=== PATIENT | male | born 1980 | race Caucasian/White ===

== ENCOUNTER 2023-01-17 05:37 | Day surgery (SDC) | payer BC, OTHER ==
[~2023-01-17] VITALS: Ht 177.8 cm; Wt 105.7 kg
[2023-01-17] MEDS ORDERED: PROTONIX20 MG PO (06:04)
[2023-01-17 06:18] VITALS: BP 117/60; PULSE 55; TEMP 97.2
[2023-01-17] MEDS ORDERED: NAPROSYN500 MG PO (07:48)
[2023-01-17] MEDS ORDERED: NORCO 325 MG-51 TAB PO (07:48)
[2023-01-17] MEDS ORDERED: CEPHALEXIN500 M1 PO (07:48)
[2023-01-17 09:25] VITALS: BP 124/84; PULSE 62; TEMP 97
--- NOTE | 2023-01-17 09:25 | NUR ---
PATIENT RETURNED TO ROOM 8 VIA CART, ALERT AND ORIENTED X3. DENIES NAUSEA AND SHORTNESS OF BREATH. STATES RIGHT KNEE IS SORE, BUT RATES PAIN TOLERABLE 4/10. BREATHING REGULAR AND UNLABORED ON ROOM AIR. NURSE HANDOFF COMPLETED IN ROOM. SEE CHART FOR VITAL SIGNS. VISIBLE KAYLA WRAP TO RIGHT KNEE. DRESSING CLEAN, DRY AND INTACT. RIGHT KNEE ELEVATED WITH ICE PACK APPLIED TO SITE. BILATERAL PEDAL AND POST TIBIAL PULSES 2+ REGULAR. SKIN WARM AND DRY. PATIENT ABLE TO FLEX AND EXTEND RIGHT KNEE WITHOUT DIFFICULTY. PATIENT HAD APPLE JUICE AND APPLE SAUCE. BOTH FOOD AND DRINK TOLERATED WELL. MET WITH PATIENT AND SPOUSE IN ROOM AT 0926.
[2023-01-17 09:30] VITALS: BP 138/62; PULSE 65
[2023-01-17 09:45] VITALS: BP 133/62; PULSE 69
[2023-01-17 10:00] VITALS: BP 133/75; PULSE 62
--- NOTE | 2023-01-17 10:18 | NUR ---
0952: PATIENT REPORTED INTOLERABLE PAIN 6/10 TO RIGHT KNEE. DESCRIBED "SWELLING" PAIN. SEE EMAR FOR MEDICATION GIVEN. 1007: DISCHARGE TEACHING COMPLETED WITH PRINTED EDUCATION AND INSTRUCTIONS SENT HOME WITH PATIENT AND SPOUSE. FOLLOW UP DATE, TIME AND LOCATION COMMUNICATED TO PATIENT AND SPOUSE. BOTH PATIENT AND MAEGAN VERBALIZED UNDERSTANDING OF TEACHING. 1013: PATIENT AMBULATED WITH STEADY GAIT TO RESTROOM AND VOIDED WITHOUT DIFFICULTY. RIGHT HAND IV REMOVED AT 1015. GAUZE AND COBAN PLACED OVER SITE. PATIENT REPORTED PAIN TOLERABLE 3/10 TO RIGHT KNEE. PATIENT DISCHARGED HOME WITH , MAEGAN, TRANSPORT.
== END 2023-01-17 10:18 | disposition home or self-care (01) ==
LOC: SDCO 05:37
DX: M21.861 Other specified acquired deformities of right lower leg (principal); M22.41 Chondromalacia patellae, right knee; M70.62 Trochanteric bursitis, left hip
CPT/HCPCS: J0665; J0690; J1100; J2405; J2704; J3010; J7120